=== PATIENT | female | born 1995 | race Caucasian/White ===

== ENCOUNTER 2016-09-25 15:33 | Emergency (ER) | payer BC ==
[~2016-09-25] VITALS: Wt 102.0 kg
[~2016-09-25 15:33] MED LIST: AZIT250T94 PO; BENZ100C70 PO; BISA10SU58 PR; CLIN-73 PO; D-ME473S18 PO; HYDR-3498 PO
[2016-09-25] MEDS ORDERED: ALBUTEROL 0.083% (NEB) 2.5 MG/3 ML AMP HHN STA (15:56)
[2016-09-25] MEDS ORDERED: IPRATROPIUM (NEB) 0.5 MG/2.5 ML AMP HHN ONE (16:00)
--- NOTE | 2016-09-25 16:28 | RADRPT ---
PROCEDURE: XR Chest. CLINICAL INDICATION: Shortness of breath TECHNIQUE: Chest AP portable. COMPARISON: 06/25/2016 FINDINGS: The mediastinal structures are unremarkable. The heart is normal in size and configuration. The pu lmonary vascularity is normal. The lung grant are unremarkable. No consolidation is identified. The pleural spaces are unremarkable. The axial skeleton is unremarkable. IMPRESSION: No active intrathoracic disease. RPTAT: [facility] .Garrett Pires MD, MD Date Time Electronically viewed and signed by .Garrett Pires MD, on 09/25/2016 16:27 .B/
[2016-09-25] MEDS ORDERED: ALBU8.5H3 INH (16:53)
[2016-09-25 17:00] VITALS: BP 118/67; PULSE 98; RESP 18; TEMP 98.5
--- NOTE | 2016-09-25 18:39 | ERD ---
DATE OF SERVICE: HISTORY OF PRESENT ILLNESS: The patient is a 21-year-old female complaining of shortness of breath, no cough. Patient states that she was at work earlier today when she started feeling chest pressur e on the left side. She did not feel that is under more anxiety than normal. She is not taking med ications for her symptoms. She states that she just started having shortness of breath, no coughing . She does have a history of asthma. She is not taking medication for her symptoms. MEDICAL HISTORY: Asthma. ALLERGIES TO MEDICATIONS: PENICILLIN. HISTORY: Denies. SOCIAL HISTORY: Smoked, but quit 4 months ago. REVIEW OF SYSTEMS: A 12-point review of systems was done. Refer to HPI for positives, all other sy stems negative. PHYSICAL EXAMINATION VITAL SIGNS: Temperature is 98, pulse 120, blood pressure is 121/71, respiratory rate 18, O2 satura tion 99% on room air. Pain intensity is 0/10. GENERAL: The patient is well-appearing, well-nourished, no acute distress. HEART: Regular rate and rhythm. No murmurs, clicks, rubs or gallops. No S3 or S4. CHEST: Clear to auscultation bilaterally. There are no rales, wheezes or rhonchi. CHEST: Clear to auscultation bilaterally. There are no rales, wheezes or rhonchi. HEENT: Atraumatic. Conjunctivae are pink. Pupils equal, round, and reactive to light. There is no s cleral icterus. Tympanic membranes clear bilaterally. Oropharynx clear. No nystagmus or photophobia . ABDOMEN: Soft, nontender and nondistended. Good bowel sounds. No rebound or guarding. No gross margaux tonitis. No gross organomegaly or masses. No Shea sign or McBurney point tenderness. SKIN: There is no apparent rash or petechia. The skin is warm and dry. EMERGENCY ROOM COURSE: The patient had an EKG done in the ER. Patient had normal sinus rhythm with a ventricular rate of 100 beats per minute, no ST elevations, no T-wave inversions, right axis with no arrhythmias. The patient also had a 1-view chest x-ray done in the ER which showed no active intrathoracic diseas e. The patient was given albuterol and Atrovent breathing treatment, and upon reevaluation the patient stated her symptoms had improved. DIAGNOSIS: Shortness of breath. MEDICAL DECISION MAKING: I have low suspicion for cardiac emergency. Low suspicion for pulmonary e mergency, including, but not limited to PE, pneumothorax, and pneumonia. Patient's symptoms may be associated with anxiety; however, I did give the patient strict ER precautions. I have low suspicio n for asthma exacerbation, respiratory distress, or hypoxia. The patient's vital signs are stable. The patient is nontoxic appearing upon reevaluation. The patient does not have pleuritic chest scotty n, no hemoptysis, no risk factors. DISCHARGE: The patient is discharged stable. Patient was given a prescription for albuterol and to ld to follow up with primary care within 1-2 days for reevaluation. Patient was told if symptoms pr ogress or worsen to return to the ER. All other questions answered at time of discharge. Discharge summary given at the time of departure. Patient understood and complied with plan. Dictated By: JAIME CARNEY PA for STEFANY JAIME/PEDRO Conf#: [id number] DID#: [id number]
== END 2016-09-25 17:01 | disposition home or self-care (01) ==
LOC: FTE 15:33
DX: J45.901 Unspecified asthma with (acute) exacerbation (principal); F17.210 Nicotine dependence, cigarettes, uncomplicated
CPT/HCPCS: 71010; 93005; 94664